=== PATIENT | female | born 1980 | race Two or more races ===

== ENCOUNTER 2019-06-17 08:16 | Outpatient (CLI) | payer OTHER | END 2019-06-17 14:51 | disposition home or self-care (01) | LOC: LAB 08:16 | DX: N95.1 Menopausal and female climacteric states (principal); E28.39 Other primary ovarian failure; E04.1 Nontoxic single thyroid nodule; E78.00 Pure hypercholesterolemia, unspecified; E55.9 Vitamin D deficiency, unspecified ==

== ENCOUNTER → 2019-06-17 | Outpatient (CLI) | payer OTHER ==
[~2019-06-17] MED LIST: ORPH100T PO; ZEGERID 40 MG C1 CAP
== END | disposition home or self-care (01) ==
LOC: MAMO-SONO 08:15 → SONOGRAMA 08:15 → MAMO-SONO 08:45
DX: Z12.31 Encounter for screening mammogram for malignant neoplasm of breast (principal); Z87.898 Personal history of other specified conditions; N60.11 Diffuse cystic mastopathy of right breast; N60.12 Diffuse cystic mastopathy of left breast; R10.84 Generalized abdominal pain; N92.1 Excessive and frequent menstruation with irregular cycle